=== PATIENT | male | born 1985 | race African-American/Black ===

== ENCOUNTER 2019-10-30 10:32 | Emergency (ER) | payer OTHER ==
--- NOTE | 2019-10-30 10:44 | EDM.PDOC ---
ED HPI GENERAL MEDICAL PROBLEM - General Chief Complaint: General Stated Complaint: DIARRHEA AND HEADACHE Time Seen by Provider: 10/30/19 10:43 Source of Information: Reports: Patient, RN, RN Notes Reviewed History Limitations: Reports: No Limitations - History of Present Illness INITIAL COMMENTS - FREE TEXT/NARRATIVE: Pt presents to ER with c/o headache, diarrhea, and cough. 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 No known COVID exposures, but came from a high impact area of virus outbreak. Onset: Sudden Onset Date: 10/29/19 Duration: Constant Location: Reports: Head, Chest, Abdomen Quality: Reports: Ache Severity: Moderate Improves with: Reports: None Worsens with: Reports: None Context: Reports: Sick Contact Associated Symptoms: Reports: No Other Symptoms Head Pain Score (Numeric/FACES): 5 - Related Data Allergies Allergy/AdvReac Type Severity Reaction Status Date / Time No Known Allergies Allergy Verified 10/30/19 10:42 Home Meds: Home Meds . [No Known Home Meds] 10/30/19 [History] Past Medical History - Past Health History Medical/Surgical History: Denies Medical/Surgical History Social & Family History - Family History Family Medical History: Noncontributory - Living Situation & Occupation Occupation: Employed ED ROS GENERAL - Review of Systems Review Of Systems: Comprehensive ROS is negative, except as noted in HPI. ED EXAM, GENERAL - Physical Exam Exam: See Below Exam Limited By: No Limitations General Appearance: Alert, WD/WN, No Apparent Distress Eye Exam: Bilateral Eye: Normal Inspection Nose: Normal Inspection Throat/Mouth: Normal Inspection, Normal Voice, No Airway Compromise Head: Atraumatic, Normocephalic Neck: Normal Inspection, Full Range of Motion Respiratory/Chest: No Respiratory Distress, Lungs Clear, Normal Breath Sounds, No Accessory Muscle Use, Chest Non-Tender Cardiovascular: Normal Peripheral Pulses, Regular Rate, Rhythm, No Edema, Tachycardia GI/Abdominal: Normal Bowel Sounds, Soft, Non-Tender, No Organomegaly, No Distention, No Abnormal Bruit, No Mass Back Exam: Normal Inspection Extremities: Normal Inspection Neurological: Alert, Oriented, CN II-XII Intact, Normal Cognition, Normal Gait, No Motor/Sensory Deficits Psychiatric: Normal Affect, Normal Mood Skin Exam: Warm, Dry, Intact, Normal Color, No Rash Course - Vital Signs Last Recorded V/S: Last Vital Signs Temp 100.3 F 10/30/19 10:42 Pulse 118 H 10/30/19 10:42 Resp 14 10/30/19 10:42 BP 143/98 H 10/30/19 10:42 Pulse Ox 96 10/30/19 10:42 - Orders/Labs/Meds Orders: Active Orders 24 hr Category Date Time Status Chest 1V Frontal [CR] Stat Exams 10/30/19 12:03 Ordered Isolation [COMM] Routine Oth 10/30/19 10:47 Active Labs: Laboratory Tests 10/30/19 10/30/19 10/30/19 Range/Units 10:49 10:49 11:07 WBC 7.3 (5.0-10.0) 10^3/uL RBC 5.44 (4.6-6.2) 10^6/uL Hgb 15.9 (14.0-18.0) g/dL Hct 48.2 (40.0-54.0) % MCV 88.6 (80-100) fL MCH 29.2 (27.0-34.0) pg MCHC 33.0 (33.0-35.0) g/dL Plt Count 212 (150-450) 10^3/uL Neut % (Auto) 61.8 (42.2-75.2) % Lymph % (Auto) 28.0 (20.5-50.1) % [place] % (Auto) 10.1 H (2-8) % Eos % (Auto) 0.0 L (1.0-3.0) % Baso % (Auto) 0.1 (0.0-1.0) % Add Manual Diff Yes Neutrophils % (Manual) 52 (42-75) % Band Neutrophils % 11 % Lymphocytes % (Manual) 25 (20-50) % Atypical Lymphs % 4 % Monocytes % (Manual) 8 (2-8) % Sodium 137 (136-145) mmol/L Potassium 4.3 (3.5-5.1) mmol/L Chloride 98 (98-107) mmol/L Carbon Dioxide 30 (21-32) mmol/L Anion Gap 13.3 H (7-13) mEq/L BUN 17 (7-18) mg/dL Creatinine 1.76 H (0.70-1.30) mg/dL Est Cr Clr Drug Dosing 59.14 mL/min Estimated GFR (MDRD) 45 BUN/Creatinine Ratio 9.7 (No establ ref range) Glucose 105 H (74-99) mg/dL Calcium 8.9 (8.5-10.1) mg/dL Total Bilirubin 0.6 (0.2-1.0) mg/dL AST 33 (15-37) U/L ALT 23 (16-63) U/L Alkaline Phosphatase 89 (46-116) U/L Total Protein 8.4 H (6.4-8.2) g/dL Albumin 3.7 (3.4-5.0) g/dL Globulin 4.7 Albumin/Globulin Ratio 0.8 SARS-CoV-2 RNA (RT-PCR) Positive H (NEGATIVE) Rapid strep: Negative. Influenza A: Positive. Influenza B: Negative. COVD: POSITIVE Meds: Medications Discontinued Medications Generic Name Dose Route Start Last Admin Trade Name Freq PRN Reason Stop Dose Admin Acetaminophen 650 mg 10/30/19 10:56 10/30/19 11:05 Tylenol PO 10/30/19 10:57 650 mg NOW ONE Administration Ibuprofen 800 mg 10/30/19 10:56 10/30/19 11:06 Motrin PO 10/30/19 10:57 800 mg ONETIME ONE Administration Departure - Departure Time of Disposition: 12:20 Disposition: Home, Self-Care 01 Condition: Good Clinical Impression: COVID-19 virus infection - Discharge Information *PRESCRIPTION DRUG MONITORING PROGRAM REVIEWED*: Not Applicable *COPY OF PRESCRIPTION DRUG MONITORING REPORT IN PATIENT ELOISA: Not Applicable Instructions: Prevent the Spread of COVID-19 if You Are Sick - CDC, COVID-19 Forms: ED Department Discharge Additional Instructions: Self quarantine for 14 days. Use Tylenol and/or Ibuprofen as needed for fevers or pain. Follow directions on label for dosing and precautions. Return to ER if you develop difficulty breathing. Sepsis Event Note (ED) - Focused Exam Vital Signs: Vital Signs Temp Pulse Resp BP Pulse Ox 10/30/19 10:42 100.3 F 118 H 14 143/98 H 96 - My Orders Last 24 Hours: My Active Orders 10/30/19 10:47 Isolation [COMM] Routine 10/30/19 12:03 Chest 1V Frontal [CR] Stat - Assessment/Plan Last 24 Hours: My Active Orders 10/30/19 10:47 Isolation [COMM] Routine 10/30/19 12:03 Chest 1V Frontal [CR] Stat
[2019-10-30] MEDS ORDERED: Ibuprofen 800 MG Tab PO ONE (10:56)
[2019-10-30] MEDS ORDERED: Acetaminophen 325 MG Tab PO ONE (10:56)
[2019-10-30 11:12] LABS: ANION GAP 13.3 mEq/L (7-13)
--- NOTE | 2019-10-30 12:31 | CR ---
PROCEDURE INFORMATION: Exam: XR Chest, 1 View Exam date and time: 10/30/2019 12:14 PM Age: 33 years old Clinical indication: Condition or disease; Other: Covid positive TECHNIQUE: Imaging protocol: XR of the chest Views: 1 view. COMPARISON: No relevant prior studies available. FINDINGS: Lungs: Patchy airspace opacities noted within both lung bases, greater on the left. Findings are most consistent with developing pneumonia. Pleural space: Small left pleural effusion. There is no evidence of pneumothorax. Heart/Mediastinum: Unremarkable. No cardiomegaly. Bones/joints: Unremarkable. IMPRESSION: 1. Patchy airspace opacities noted within both lung bases, greater on the left. Findings are most consistent with developing pneumonia. 2. Small left pleural effusion.
== END 2019-10-30 13:07 | disposition home or self-care (01) ==
LOC: DL.ED 10:32
DX: U07.1 COVID-19 (principal)
CPT/HCPCS: 36415; 71045; 80053; 85025; 87430; 87804; 99284-25; A9270-GY; U0002